=== PATIENT | male | born 1965 | race Caucasian/White ===

== ENCOUNTER 2016-09-06 09:03 | Emergency (ER) | payer OTHER ==
[~2016-09-06] VITALS: Ht 190.5 cm; Wt 88.0 kg
[~2016-09-06 09:03] MED LIST: ALEV220T14 PO; ALPR1 PO; CEPH500C3 PO; GLUCTAB PO; METF-324 PO; MOBI15TA PO; ZOLP10TA3 PO
[2016-09-06 09:04] VITALS: BP 134/93; PULSE 97; RESP 16; TEMP 97.6; O2SAT 97
[2016-09-06 09:35] LABS: BLOOD, URINE TRACE (NEG); KETONE, URINE NEG (NEG); NITRITE,URINE NEG (NEG); PH, URINE 5.5 (5.0-8.5)
[2016-09-06] MEDS ORDERED: METF1000 PO (09:36)
[2016-09-06] MEDS ORDERED: TRAM50TA PO (09:36)
[2016-09-06] MEDS ORDERED: FLUT1INH INH (09:36)
[2016-09-06] MEDS ORDERED: LORA1TAB12 PO (09:36)
[2016-09-06] MEDS ORDERED: CITA40TA4 PO (09:36)
[2016-09-06] MEDS ORDERED: ZOLP10TA3 PO (09:36)
[2016-09-06] MEDS ORDERED: DULA0.5I SQ (09:36)
[2016-09-06 09:37] LABS: GLUCOSE,URINE 1000 OR GREATER mg/dL (NEG); METHOD OF COLLECTION CLEAN CATCH; URINE COLOR YELLOW (YELLW/STRAW)
[2016-09-06 09:39] LABS: COMMENT (UR) CULT NOT INDICATED; CULTURE IF INDICATED CULT NOT INDICATED; RBC, URINE 0-3 /hpf (0-3); SQUAMOUS EPITHELIAL CELL URINE 0-5 /hpf (0-5)
--- NOTE | 2016-09-06 09:48 | PD ---
HPI Chief Complaint: Flank/Kidney Pain Time Seen by Provider: 09:08 Travel History International Travel<30 days: No Contact w/Intl Traveler<30days: No Traveled to known affect area: No History of Present Illness HPI This 51-year-old male is complaining of right flank pain. He says he had the pain since and has been fairly constant. He has a history of back surgery. He also has a history of kidney stones. He says with the kidney stones the pain usually lets up at some point but this pain has not let up. The location of the pain is similar to the pain he said with kidney stones in the past. He is not aware of fever or chills. He has a history of diabetes and is supposed to be on metformin and insulin but has not been taking either one for several days PFSH Past Medical History Hx Anticoagulant Therapy: No Diabetes: Yes (TYPE 2) Musculoskeletal: Yes (DDD LUMBAR ) Social History Alcohol Use: Yes (OCCASSIONAL SOCIALLY) Tobacco Use: Yes (2 PPD) Substance Use: No Allergies-Medications (Allergen,Severity, Reaction): Coded Allergies: No Known Allergies (Verified , 09/06/16) Reported Meds & Prescriptions Reported Meds & Active Scripts Active Reported Tramadol (Tramadol HCl) 50 Mg Tab 50 Mg PO BID PRN Breo Ellipta Inh (Fluticasone/Vilanterol) 100-25 Mcg/Act Inh 1 Puff INH DAILY PRN Use daily at the same time. Zolpidem (Zolpidem Tartrate) 10 Mg Tab 10 Mg PO HS PRN Metformin (Metformin HCl) 1,000 Mg Tab 1,000 Mg PO DAILY With a meal Citalopram (Citalopram Hydrobromide) 40 Mg Tab 40 Mg PO HS Lorazepam 1 Mg Tab 1 Mg PO HS PRN Trulicity Inj (Dulaglutide Inj) 1.5 Mg/0.5 Ml Pen 1.5 Mg SQ Q7D Review of Systems General / Constitutional: No: Fever, Chills Eyes: No: Diploplia, Blurred Vision HENT: No: Headaches, Vertigo Cardiovascular: No: Chest Pain or Discomfort, Palpitations Respiratory: No: Shortness of Breath, Wheezing Gastrointestinal: No: Nausea, Vomiting Genitourinary: Positive: Flank Pain Musculoskeletal: No: Myalgias, Arthralgias Skin: No Rash, No Itching Neurologic: No: Weakness, Dizziness Psychiatric: No: Anxiety Endocrine: No: Cold Intolerance Hematologic/Lymphatic: No: Easy Bruising Physical Exam Narrative GENERAL: Thin male SKIN: Focused skin assessment warm/dry. HEAD: Atraumatic. Normocephalic. EYES: Pupils equal and round. No scleral icterus. No injection or drainage. ENT: No nasal bleeding or discharge. Mucous membranes pink and moist. NECK: Trachea midline. No JVD. CARDIOVASCULAR: Regular rate and rhythm. No murmur appreciated. RESPIRATORY: No accessory muscle use. Clear to auscultation. Breath sounds equal bilaterally. GASTROINTESTINAL: Abdomen soft, non-tender, nondistended. Hepatic and splenic margins not palpable. The pain is the right flank but it is not tender to percussion. There are no skin lesions MUSCULOSKELETAL: No obvious deformities. No clubbing. No cyanosis. No edema. NEUROLOGICAL: Awake and alert. No obvious cranial nerve deficits. Motor grossly within normal limits. Normal speech. PSYCHIATRIC: Appropriate mood and affect; insight and judgment normal. Data Data Last Documented VS Vital Signs Date Time Temp Pulse Resp B/P Pulse Ox O2 Delivery O2 Flow Rate FiO2 09/06/16 09:23 16 09/06/16 09:04 97.6 97 134/93 97 Orders Urinalysis - C+S If Indicated (09/06/16 09:13) Ct Abd/Pel W/O Iv Contrast (09/06/16 09:13) Insulin Human Regular Inj (Novolin R Inj (09/06/16 10:15) Labs Laboratory Tests Test 09/06/16 09:30 Urine Collection Type CLEAN CATCH Urine Color YELLOW Urine Turbidity CLEAR Urine pH 5.5 Urine Specific [place] GREATER THAN 1.035 Urine Protein NEG mg/dL Urine Glucose (UA) 1000 OR GREATER mg/dL Urine Ketones NEG mg/dL Urine Occult Blood TRACE Urine Nitrite NEG Urine Bilirubin NEG Urine Leukocyte Esterase NEG Urine RBC 0-3 /hpf Urine Squamous Epithelial 0-5 /hpf Cells Urine Amorphous Sediment FEW Microscopic Urinalysis Comment CULT NOT INDICATED Urine Collection Time 0930 [facility] Medical Decision Making Medical Screen Exam Complete: Yes Emergency Medical Condition: Yes Medical Record Reviewed: Yes Differential Diagnosis Differential includes renal colic, musculoskeletal pain, Narrative Course CT abdomen and pelvis without contrast was performed. It is noted that the liver is slightly nodular could be related to early changes of cirrhosis. There are no renal calculi or hydronephrosis seen. Urinalysis does not show evidence of infection or blood. Etiology of the pain is not determined. He does have a large amount of glucose in his urine and his blood sugar is 400. He admits that he has not been compliant. Importance of compliance was stressed to the patient. The patient does say that the pain has been keeping him awake at night. He'll be provided some pain medication temporarily he is to follow-up with his own medical doctor Diagnosis Primary Impression: Flank pain Additional Impression: Hyperglycemia Additional Instructions: Follow-up with your primary care doctor Scripts Hydrocodone-Acetaminophen (Lortab)7.5-325 Mg Tab1 Tab PO Q4H PRN (PAIN) #20 TAB Ref 0 Prov:Will De La Vega MD 09/06/16 Disposition: 01 DISCHARGE HOME Condition: Stable Will De La Vega MD Sep 06, 2016 09:48
--- NOTE | 2016-09-06 10:01 | RADHPO ---
EXAM DATE/TIME: 09/06/2016 09:28 [place] COMPARISON: No previous studies available for comparison. INDICATIONS : Right flank pain. ORAL CONTRAST: No oral contrast ingested. RADIATION DOSE: 17.83 CTDIvol (mGy) MEDICAL HISTORY : Hypertension. Renal calculi. Diabetes. SURGICAL HISTORY : None. ENCOUNTER: Initial ACUITY: 4 - 6 days PAIN SCALE: 4/10 LOCATION: Right flank TECHNIQUE: Volumetric scanning of the abdomen and pelvis was performed. Using automated exposure control and ad justment of the mA and/or kV according to patient size, radiation dose was kept as low as reasonably achievable to obtain optimal diagnostic quality images. FINDINGS: LOWER LUNGS: The visualized lower lungs are clear. LIVER: Slightly nodular contour without lesion. There is no dilation of the biliary tree. No calcified gal lstones. Borderline prominent lymph nodes in the kika hepatis. SPLEEN: Normal size without lesion. PANCREAS: Within normal limits. KIDNEYS: Normal in size and shape. There is no mass, stone, or hydronephrosis. ADRENAL GLANDS: Within normal limits. VASCULAR: There is no aortic aneurysm. BOWEL/MESENTERY: The stomach, small bowel, and colon demonstrate no acute abnormality. There is no free intraperitone al air or fluid. Appendix is normal. ABDOMINAL WALL: Within normal limits. RETROPERITONEUM: There is no lymphadenopathy. BLADDER: No wall thickening or mass. REPRODUCTIVE: Within normal limits. INGUINAL: There is no lymphadenopathy or hernia. MUSCULOSKELETAL: Within normal limits for patient age. CONCLUSION: 1. Liver slightly nodular and could be related to early morphologic changes of cirrhosis. 2. No renal calculi or hydronephrosis. 3. Normal appendix. 4. Borderline prominent lymph nodes in the kika hepatis, likely reactive. Devon Toro MD on September 06, 2016 at 9:55 Board Certified Radiologist. This report was verified electronically.
[2016-09-06] MEDS ORDERED: HYDR-3534 PO (10:11)
[2016-09-06] MEDS ORDERED: INSULIN HUMAN REGULAR 1,000 UNITS/10 ML VIAL SQ ONE (10:15)
[2016-09-06 10:22] VITALS: BP 128/82
== END 2016-09-06 10:24 | disposition home or self-care (01) ==
LOC: PHED 09:03
DX: R10.31 Right lower quadrant pain (principal); E11.65 Type 2 diabetes mellitus with hyperglycemia; F17.210 Nicotine dependence, cigarettes, uncomplicated; Z79.4 Long term (current) use of insulin; Z79.84 Long term (current) use of oral hypoglycemic drugs; Z87.442 Personal history of urinary calculi; Z91.14 Patient's other noncompliance with medication regimen
CPT/HCPCS: 74176; 81001; 96372; 99285; J1815

== ENCOUNTER 2016-09-26 09:39 | Emergency (ER) | payer OTHER ==
[~2016-09-26] VITALS: Ht 190.5 cm; Wt 87.0 kg
[~2016-09-26 09:39] MED LIST changes: -ALEV220T14 PO; -ALPR1 PO; -CEPH500C3 PO; +CITA40TA4 PO; +DULA0.5I SQ; +FLUT1INH INH; -GLUCTAB PO; +HYDR-3534 PO; +LORA1TAB12 PO; -METF-324 PO; +METF1000 PO; -MOBI15TA PO; +TRAM50TA PO
[2016-09-26 09:42] VITALS: BP 167/92; PULSE 90; RESP 16; TEMP 98.6; O2SAT 99
[2016-09-26] MEDS ORDERED: INSU100V2 SQ (09:57)
[2016-09-26] MEDS ORDERED: SODIUM CHLOR 0.9% 1000 ML INJ 1,000 ML IV SCH (09:58)
[2016-09-26] MEDS ORDERED: MORPHINE SULFATE 4 MG/ML INJ IV PUSH ONE (10:00)
[2016-09-26] MEDS ORDERED: SODIUM CHLORIDE 0.9% FLUSH 10 ML FLUSH IV FLUSH PRN (10:00)
[2016-09-26] MEDS ORDERED: ONDANSETRON HCL 4 MG/2 ML VIAL IVP ONE (10:00)
--- NOTE | 2016-09-26 10:02 | PD ---
HPI Chief Complaint: GI Complaint Time Seen by Provider: 09:45 Travel History International Travel<30 days: No Contact w/Intl Traveler<30days: No Traveled to known affect area: No History of Present Illness HPI The patient is a 51-year-old male who presents emergency department for nausea, vomiting, diarrhea, and right upper quadrant abdominal pain. The patient is a one-week history of intermittent right upper quadrant abdominal pain, feels like there is a mass in the right upper quadrant, worse with standing upright that is better with lying supine. He also notes several episodes of nausea and vomiting with a few intermittent episodes of diarrhea. The patient also notes 3 weeks of right back pain and flank pain, states he was evaluated in the emergency department with a UA and CT which are unremarkable in the followed up with his primary physician on an outpatient basis with no obvious cause of his symptoms. He does have a history of intermittent alcohol use and smokes 2 pack of cigarettes per day. He denies any trauma to the abdominal wall. He was able to eat dinner last night, however, has not had any food this morning. Symptoms are mild to moderate, there are no current alleviating or exacerbating factors. PFSH Past Medical History Hx Anticoagulant Therapy: No Asthma: Yes Anxiety: Yes Depression: Yes Diabetes: Yes (TYPE 2) Patient Takes Glucophage: Yes Hypertension: Yes Kidney Stones: Yes Musculoskeletal: Yes (DDD LUMBAR ) Social History Alcohol Use: Yes (OCCASSIONAL SOCIALLY) Tobacco Use: Yes (2 PPD) Substance Use: No Allergies-Medications (Allergen,Severity, Reaction): Coded Allergies: No Known Allergies (Verified , 09/26/16) Reported Meds & Prescriptions Reported Meds & Active Scripts Active Reported Humulin R Inj (Insulin Human Regular) 1,000 Unit/10 Ml Vial 2-10 Units SQ TIDAC PRN IMPORTANT TO EAT A MEAL WITHIN 30-60 MINUTES OF DOSING Zolpidem (Zolpidem Tartrate) 10 Mg Tab 10 Mg PO HS PRN Metformin (Metformin HCl) 1,000 Mg Tab 1,000 Mg PO DAILY With a meal Citalopram (Citalopram Hydrobromide) 40 Mg Tab 40 Mg PO HS Lorazepam 1 Mg Tab 1 Mg PO HS PRN Trulicity Inj (Dulaglutide Inj) 1.5 Mg/0.5 Ml Pen 1.5 Mg SQ Q7D Review of Systems Except as stated in HPI: all other systems reviewed are Neg General / Constitutional: No: Fever Cardiovascular: No: Chest Pain or Discomfort Respiratory: No: Shortness of Breath Gastrointestinal: Positive: Nausea, Vomiting, Diarrhea, Abdominal Pain Genitourinary: No: Dysuria, Hematuria Musculoskeletal: Positive: Pain (back pain 3 weeks) Neurologic: No: Dizziness Physical Exam Narrative GENERAL: Awake, alert, pleasant 51-year-old male who appears his stated age and is in no acute respiratory distress. SKIN: Focused skin assessment warm/dry. HEAD: Atraumatic. Normocephalic. EYES: Pupils equal and round. No scleral icterus. No injection or drainage. ENT: No nasal bleeding or discharge. Breath smells of cigarettes. NECK: Trachea midline. No JVD. CARDIOVASCULAR: Regular rate and rhythm. No murmur appreciated. RESPIRATORY: No accessory muscle use. Clear to auscultation. Breath sounds equal bilaterally. GASTROINTESTINAL: Abdomen soft, non-tender, nondistended. No rebound tenderness , guarding, rigidity. No palpable hernias. The abdominal wall was inspected while the patient was lying supine and standing upright, I cannot visualize or palpate any mass. MUSCULOSKELETAL: No obvious deformities. No clubbing. No cyanosis. No edema. NEUROLOGICAL: Awake and alert. No obvious cranial nerve deficits. Motor grossly within normal limits. Normal speech. PSYCHIATRIC: Appropriate mood and affect; insight and judgment normal. Data Data Last Documented VS Vital Signs Date Time Temp Pulse Resp B/P Pulse Ox O2 Delivery O2 Flow Rate FiO2 09/26/16 10:16 84 18 152/83 97 Room Air 09/26/16 09:42 98.6 Orders Complete Blood Count With Diff (09/26/16 09:58) Comprehensive Metabolic Panel (09/26/16 09:58) Lipase (09/26/16 09:58) Iv Access Insert/Monitor (09/26/16 09:58) Ecg Monitoring (09/26/16 09:58) Oximetry (09/26/16 09:58) Ondansetron Inj (Zofran Inj) (09/26/16 10:00) Sodium Chlor 0.9% 1000 Ml Inj (Ns 1000 M (09/26/16 09:58) Sodium Chloride 0.9% Flush (Ns Flush) (09/26/16 10:00) Morphine Inj (Morphine Inj) (09/26/16 10:15) Labs Laboratory Tests Test 09/26/16 10:05 White Blood Count 6.7 TH/MM3 Red Blood Count 4.79 MIL/MM3 Hemoglobin 14.7 GM/DL Hematocrit 42.5 % Mean Corpuscular Volume 88.8 FL Mean Corpuscular Hemoglobin 30.7 PG Mean Corpuscular Hemoglobin 34.6 % Concent Red Cell Distribution Width 12.0 % Platelet Count 183 TH/MM3 Mean Platelet Volume 8.6 FL Neutrophils (%) (Auto) 60.0 % Lymphocytes (%) (Auto) 28.4 % Monocytes (%) (Auto) 6.6 % Eosinophils (%) (Auto) 4.6 % Basophils (%) (Auto) 0.4 % Neutrophils # (Auto) 4.1 TH/MM3 Lymphocytes # (Auto) 1.9 TH/MM3 Monocytes # (Auto) 0.4 TH/MM3 Eosinophils # (Auto) 0.3 TH/MM3 Basophils # (Auto) 0.0 TH/MM3 CBC Comment DIFF FINAL Differential Comment Sodium Level 141 MEQ/L Potassium Level 4.0 MEQ/L Chloride Level 104 MEQ/L Carbon Dioxide Level 31.1 MEQ/L Anion Gap 6 MEQ/L Blood Urea Nitrogen 7 MG/DL Creatinine 0.72 MG/DL Estimat Glomerular Filtration 116 ML/MIN Rate Random Glucose 126 MG/DL Calcium Level 8.7 MG/DL Total Bilirubin 0.7 MG/DL Aspartate Amino Transf 30 U/L (AST/SGOT) Alanine Aminotransferase 50 U/L (ALT/SGPT) Alkaline Phosphatase 80 U/L Total Protein 6.9 GM/DL Albumin 3.4 GM/DL Lipase 882 U/L [facility] Medical Decision Making Medical Screen Exam Complete: Yes Emergency Medical Condition: Yes Medical Record Reviewed: Yes Interpretation(s) Laboratory Tests Test 09/26/16 10:05 White Blood Count 6.7 TH/MM3 Red Blood Count 4.79 MIL/MM3 Hemoglobin 14.7 GM/DL Hematocrit 42.5 % Mean Corpuscular Volume 88.8 FL Mean Corpuscular Hemoglobin 30.7 PG Mean Corpuscular Hemoglobin 34.6 % Concent Red Cell Distribution Width 12.0 % Platelet Count 183 TH/MM3 Mean Platelet Volume 8.6 FL Neutrophils (%) (Auto) 60.0 % Lymphocytes (%) (Auto) 28.4 % Monocytes (%) (Auto) 6.6 % Eosinophils (%) (Auto) 4.6 % Basophils (%) (Auto) 0.4 % Neutrophils # (Auto) 4.1 TH/MM3 Lymphocytes # (Auto) 1.9 TH/MM3 Monocytes # (Auto) 0.4 TH/MM3 Eosinophils # (Auto) 0.3 TH/MM3 Basophils # (Auto) 0.0 TH/MM3 CBC Comment DIFF FINAL Differential Comment Sodium Level 141 MEQ/L Potassium Level 4.0 MEQ/L Chloride Level 104 MEQ/L Carbon Dioxide Level 31.1 MEQ/L Anion Gap 6 MEQ/L Blood Urea Nitrogen 7 MG/DL Creatinine 0.72 MG/DL Estimat Glomerular Filtration 116 ML/MIN Rate Random Glucose 126 MG/DL Calcium Level 8.7 MG/DL Total Bilirubin 0.7 MG/DL Aspartate Amino Transf 30 U/L (AST/SGOT) Alanine Aminotransferase 50 U/L (ALT/SGPT) Alkaline Phosphatase 80 U/L Total Protein 6.9 GM/DL Albumin 3.4 GM/DL Lipase 882 U/L Differential Diagnosis Differential diagnosis includes pancreatitis, gastritis, gastroenteritis, biliary colic, abdominal wall hernia, sports hernia, umbilical hernia, medication side effect. Narrative Course IV was established, labs are drawn and sent, and the patient was placed on cardiac telemetry monitoring and continuous pulse oximetry monitoring. I reviewed the patient's CT report from September 06, 2016, he appeared to have possible early cirrhosis, otherwise, abdominal CT was unremarkable. The abdominal exam is benign, there is no palpable mass or hernia. The patient was provided Zofran, morphine, and IV fluids. LFTs and lipase were sent to lab. The patient's white count is unremarkable. LFTs are normal. Glucose is minimally elevated at 126. However, lipase is elevated at 882. The patient currently takes Trulicity, I did a search via Internet that does reveal Associates between back pain and pancreatitis with this medication. The patient is advised to stop this medication and follow-up with his primary physician, Dr. Catracho Elena. He will be provided a copy of his labs at discharge. Diagnosis Primary Impression: Pancreatitis Qualified Code: K85.30 - Drug-induced acute pancreatitis, unspecified complication status Additional Impression: Medication side effect Qualified Code: T88.7XXA - Medication side effect, initial encounter Patient Instructions: General Instructions Additional Instructions: Stop taking the Trulicity. [place] and Zofran as needed for pain and nausea. Follow-up with your primary physician, Dr. Catracho Elena, in regards to your diabetic medications. Clear liquid diet and advance as tolerated. Please provide a patient a copy of his labs at discharge. Scripts Ondansetron Odt (Zofran Odt)4 Mg Tab4 Mg SL Q6HR PRN (Nausea/Vomiting) #7 TAB Ref 0 Prov:Reza Herbert MD 09/26/16 Hydrocodone-Acetaminophen ([place])5-325 mg Tab1 Tab PO Q6H PRN (PAIN) #12 TAB Ref 0 Prov:Reza Herbert MD 09/26/16 Disposition: 01 DISCHARGE HOME Condition: Stable Reza Herbert MD Sep 26, 2016 10:02
[2016-09-26 10:15] LABS: AUTOMATED NEUTROPHIL # 4.1 TH/MM3 (1.8-7.7); BASOPHIL % 0.4 % (0.0-2.0); EOSINOPHIL # 0.3 TH/MM3 (0-0.4); EOSINOPHIL % 4.6 % (0.0-4.0); HEMATOCRIT 42.5 % (39.0-51.0); HEMO FLAGS DIFF FINAL; LYMPH % 28.4 % (9.0-44.0); LYMPHOCYTE # 1.9 TH/MM3 (1.0-4.8); MEAN CELL VOLUME 88.8 FL (80.0-100.0); MEAN CORPUSCULAR HEMOGLOBIN 30.7 PG (27.0-34.0); MEAN CORPUSCULAR HGB CONC 34.6 % (32.0-36.0); MONO % 6.6 % (0.0-8.0); PLATELET COUNT 183 TH/MM3 (150-450); RED BLOOD COUNT 4.79 MIL/MM3 (4.50-5.90); WHITE BLOOD COUNT 6.7 TH/MM3 (4.0-11.0)
[2016-09-26] MEDS ORDERED: MORPHINE SULFATE 8 MG/ML INJ IV PUSH ONE (10:15)
[2016-09-26 10:16] VITALS: BP 152/83; PULSE 84; RESP 18; O2SAT 97
[2016-09-26 11:13] LABS: CHLORIDE 104 MEQ/L (98-107); SODIUM (NA) 141 MEQ/L (136-145)
[2016-09-26 11:17] LABS: ANION GAP 6 MEQ/L (5-15); BICARBONATE 31.1 MEQ/L (21.0-32.0); BLOOD UREA NITROGEN 7 MG/DL (7-18)
[2016-09-26 11:20] LABS: ALT (GPT) 50 U/L (12-78); AST (GOT) 30 U/L (15-37); GLOMERULAR FILTRATION RATE 116 ML/MIN (>89)
[2016-09-26 11:21] LABS: TOTAL BILIRUBIN ADULT 0.7 MG/DL (0.2-1.0)
[2016-09-26 11:22] LABS: ALKALINE PHOSPHATASE 80 U/L (45-117)
[2016-09-26] MEDS ORDERED: NORC5TAB PO (11:27)
[2016-09-26] MEDS ORDERED: ZOFR4TAB3 SL (11:27)
[2016-09-26 11:42] VITALS: BP 138/88
== END 2016-09-26 11:43 | disposition home or self-care (01) ==
LOC: PHED 09:39
DX: K85.30 Drug induced acute pancreatitis without necrosis or infection (principal); T88.7XXA Unspecified adverse effect of drug or medicament, initial encounter; E11.9 Type 2 diabetes mellitus without complications; I10 Essential (primary) hypertension; F17.200 Nicotine dependence, unspecified, uncomplicated; Z79.4 Long term (current) use of insulin; Z87.09 Personal history of other diseases of the respiratory system; Z86.59 Personal history of other mental and behavioral disorders; Z87.442 Personal history of urinary calculi; Z87.39 Personal history of other diseases of the musculoskeletal system and connective tissue
CPT/HCPCS: 80053; 83690; 85025; 96361; 96374; 96375; 99284; J2270; J2405; J7030